=== PATIENT | female | born 1945 | race Caucasian/White ===

== ENCOUNTER 2019-04-05 12:09 | Emergency (ER) | payer OTHER ==
[~2019-04-05] VITALS: Ht 167.6 cm; Wt 125.0 kg
[2019-04-05] MEDS ORDERED: SODIUM CHLORIDE 0.9% 1,000 ML IV ONE (13:06)
[2019-04-05] MEDS ORDERED: ONDANSETRON HCL 4MG/2ML INJ IV STA (13:06)
[2019-04-05] MEDS ORDERED: MORPHINE SULFATE 4 MG/ML CPJ (NOT FOR IM USE) IV STA (13:06)
[2019-04-05 13:46] LABS: BASOPHILS % 0.9 % (0.0-2.0); EOSINOPHILS % 0.1 % (0.0-5.0); HEMATOCRIT. 42.1 % (36.0-48.0); HEMOGLOBIN. 13.4 g/dL (12.0-16.0); LYMPHOCYTES % 15.2 % (20.0-50.0); MEAN CORPUSCULAR HEMOGLOBIN 27.2 pg (28.0-32.0); MEAN CORPUSCULAR VOLUME 85.1 fL (81.0-99.0); MEAN PLATELET VOLUME 9.4 fl (7.4-10.4); NEUTROPHILS % 76.8 % (40.0-76.0); PLATELET 214 x1000/uL (130-400); RED BLOOD CELL COUNT 4.95 mill/uL (4.2-5.4); RED CELL DISTRIBUTION WIDTH 16.2 % (11.6-14.6)
[2019-04-05 13:51] LABS: INR 1.1; PROTHROMBIN TIME 10.8 sec (9.6-11.0)
[2019-04-05 13:52] LABS: CHLORIDE 104 mEq/L (98-107)
[2019-04-05] MEDS ORDERED: LACTATED RINGERS 1,000 ML IV STA (15:02)
[2019-04-05] MEDS ORDERED: IOHEXOL-300 100 ML BOTTLE ONE (15:32)
[2019-04-05 17:00] VITALS: BP 180/91
== END 2019-04-05 19:28 | disposition home or self-care (01) ==
LOC: ER 12:09 → CANBEDREQ 19:31
DX: K46.9 Unspecified abdominal hernia without obstruction or gangrene (principal); M54.5 Low back pain; E11.9 Type 2 diabetes mellitus without complications; I10 Essential (primary) hypertension
CPT/HCPCS: 36415; 74177; 80053; 83605; 83690; 84484; 85025; 85610; 87040; 96361; 96374; 96375; 99284; J2270; J2405; J7030; J7120; Q9967

== ENCOUNTER 2021-08-17 13:34 | Emergency (ER) | payer MEDICARE, OTHER ==
[~2021-08-17] VITALS: Ht 170.2 cm; Wt 137.0 kg
[2021-08-17] MEDS ORDERED: MORPHINE SULFATE 4 MG/ML CPJ (NOT FOR IM USE) IV STA (14:23)
[2021-08-17] MEDS ORDERED: ONDANSETRON HCL 4MG/2ML INJ IV STA (14:23)
[2021-08-17] MEDS ORDERED: SODIUM CHLORIDE 0.9% 1,000 ML IV ONE (14:30)
[2021-08-17 15:21] LABS: BASOPHILS % 0.7 % (0.0-2.0); EOSINOPHILS % 0.4 % (0.0-5.0); HEMATOCRIT. 38.8 % (36.0-48.0); HEMOGLOBIN. 12.5 g/dL (12.0-16.0); LYMPHOCYTES % 18.7 % (20.0-50.0); MEAN CORPUSCULAR HEMOGLOBIN 27.2 pg (28.0-32.0); MEAN CORPUSCULAR VOLUME 84.2 fL (81.0-99.0); MEAN PLATELET VOLUME 9.2 fl (7.4-10.4); MONOCYTES % 6.9 % (2.0-8.0); NEUTROPHILS % 73.3 % (40.0-76.0); PLATELET 216 x1000/uL (130-400); RED CELL DISTRIBUTION WIDTH 15.1 % (11.6-14.6)
[2021-08-17 15:25] LABS: CHLORIDE 105 mEq/L (98-107)
[2021-08-17] MEDS ORDERED: MORPHINE SULFATE 4 MG/ML CPJ (NOT FOR IM USE) IV ONE (16:30)
[2021-08-17 17:09] LABS: CLARITY URINE CLEAR (CLEAR); COLOR URINE YELLOW (YELLOW); KETONES URINE TRACE (NEGATIVE); LEUKOCYTE ESTERASE URINE TRACE (NEGATIVE); NITRITE URINE NEGATIVE (NEGATIVE); OCCULT BLOOD URINE NEGATIVE (NEGATIVE); PROTEIN URINE TRACE (NEGATIVE); SPECIFIC GRAVITY URINE 1.019 (1.005-1.030)
[2021-08-17] MEDS ORDERED: CEFTRIAXONE 1 G PREMIX 50 ML IV ONE (17:30)
[2021-08-17] MEDS ORDERED: MORPHINE SULFATE 4 MG/ML CPJ (NOT FOR IM USE) IV PRN (20:15)
[2021-08-17 20:58] VITALS: BP 147/77
== END 2021-08-17 21:23 | disposition short-term general hospital (02) ==
LOC: ER 13:34 → CANBEDREQ 21:56
DX: R10.9 Unspecified abdominal pain (principal); K80.80 Other cholelithiasis without obstruction; N39.0 Urinary tract infection, site not specified; K80.50 Calculus of bile duct without cholangitis or cholecystitis without obstruction; E11.9 Type 2 diabetes mellitus without complications; I10 Essential (primary) hypertension; M19.90 Unspecified osteoarthritis, unspecified site; M48.00 Spinal stenosis, site unspecified; Z90.49 Acquired absence of other specified parts of digestive tract; Z90.710 Acquired absence of both cervix and uterus; Z20.822 Contact with and (suspected) exposure to COVID-19; Z98.890 Other specified postprocedural states
CPT/HCPCS: 36415; 71045; 74176; 76705; 80053; 81003; 83690; 85025; 87086; 87426; 96361; 96365; 96375; 96376; 99285; J0696; J2270; J2405; J7030

== ENCOUNTER 2022-03-09 17:23 | Inpatient (IN) | payer MEDICARE, OTHER ==
[~2022-03-09] VITALS: Ht 165.1 cm; Wt 125.6 kg
[2022-03-09] MEDS ORDERED: PIPERACILLIN/TAZ 3.375G PREMIX 50 ML IV ONE (18:30)
[2022-03-09] MEDS ORDERED: VANCOMYCIN 1G PREMIX 200 ML IV ONE (18:30)
[2022-03-09 18:59] LABS: CHLORIDE 106 mEq/L (98-107)
[2022-03-09 19:05] LABS: BASOPHILS % 0.6 % (0.0-2.0); EOSINOPHILS % 0.1 % (0.0-5.0); HEMOGLOBIN. 13.5 g/dL (12.0-16.0); LYMPHOCYTES % 8.1 % (20.0-50.0); MEAN CORPUSCULAR HEMOGLOBIN 28.8 pg (28.0-32.0); MEAN CORPUSCULAR VOLUME 89.8 fL (81.0-99.0); MONOCYTES % 4.6 % (2.0-8.0); NEUTROPHILS % 86.6 % (40.0-76.0); PLATELET 196 x1000/uL (130-400); RED BLOOD CELL COUNT 4.68 mill/uL (4.2-5.4); RED CELL DISTRIBUTION WIDTH 15.1 % (11.6-14.6)
[2022-03-09 19:09] LABS: ETHANOL BLOOD < 10 mg/dL
[2022-03-09] MEDS ORDERED: SODIUM CHLORIDE 0.9% 1000ML BAG (SEPSIS BOLUS) IV NR (19:45)
[2022-03-09] MEDS ORDERED: METF-414 MT (21:14)
[2022-03-09] MEDS ORDERED: GLIP10TA10 MT (21:14)
[2022-03-09] MEDS ORDERED: LOSA100T32 MT (21:14)
[2022-03-09] MEDS ORDERED: ROSU5TAB MT (21:14)
[2022-03-09] MEDS ORDERED: MORP15TA67 MT (21:14)
[2022-03-09] MEDS ORDERED: METO25TA6 MT (21:14)
[2022-03-09] MEDS ORDERED: GABA-532 MT (21:39)
[2022-03-09 21:45] LABS: CLARITY URINE CLEAR (CLEAR); COLOR URINE DARK YELLOW (YELLOW); KETONES URINE 1+ (NEGATIVE); LEUKOCYTE ESTERASE URINE TRACE (NEGATIVE); NITRITE URINE POSITIVE (NEGATIVE); OCCULT BLOOD URINE NEGATIVE (NEGATIVE); PH URINE 5.5 (4.5-8.0); PROTEIN URINE NEGATIVE (NEGATIVE); SPECIFIC GRAVITY URINE 1.015 (1.005-1.030)
[2022-03-09] MEDS ORDERED: MAGNESIUM/ALUMINUM HYDROXIDE/SIMETHICONE 30ML UDC PO PRN (21:45)
[2022-03-09] MEDS ORDERED: DOCUSATE SODIUM 100MG CAPSULE PO PRN (21:45)
[2022-03-09] MEDS ORDERED: GUAIFENESIN 200MG/10ML SUGAR FREE UDC PO PRN (21:45)
[2022-03-09] MEDS ORDERED: METOCLOPRAMIDE HCL 10MG/2ML VIAL IV PRN (21:45)
[2022-03-09] MEDS: SODIUM CHLORIDE 0.9% 1,000 ML IV SCH (21:45)
[2022-03-09] MEDS ORDERED: IPRATROPIUM/ALBUTEROL 0.5-3(2.5)MG/3ML NEB HHN PRN (21:45)
[2022-03-09] MEDS ORDERED: ENOXAPARIN 40MG/0.4ML SYR SUBCUT SCH (21:45)
[2022-03-09 21:58] LABS: *AMPHETAMINES SCREEN URINE NEGATIVE (NEGATIVE); *BARBITURATES SCREEN URINE NEGATIVE (NEGATIVE); *BENZODIAZEPINES SCREEN URINE NEGATIVE (NEGATIVE); *COCAINE SCREEN URINE NEGATIVE (NEGATIVE); CANNABINOID URINE SCREEN NEGATIVE (NEGATIVE); METHADONE URINE SCREEN NEGATIVE (NEGATIVE); OPIATES URINE SCREEN PRESUMTIVE POSITIVE (NEGATIVE); PHENCYCLIDINE URINE SCREEN NEGATIVE (NEGATIVE)
[2022-03-09] MEDS: MORPHINE SULFATE 2 MG/ML CPJ (NOT FOR IM USE) IV PRN (22:17)
[2022-03-09] MEDS ORDERED: ENOXAPARIN 40MG/0.4ML SYR SUBCUT NR (22:30)
[2022-03-09] MEDS ORDERED: DEXTROSE 50% WATER 50ML SYRINGE IV PRN (23:30)
[2022-03-10] VITALS (18 sets, daily range): BP systolic 108–162; BP diastolic 48–82
[2022-03-10] MEDS ORDERED: METRONIDAZOLE 500 MG PREMIX 100 ML IV SCH
[2022-03-10] MEDS ORDERED: AZITHROMYCIN 500 MG in DEXT 5% WATER 250 ML IV SCH (02:00)
[2022-03-10] MEDS ORDERED: AZITHROMYCIN 500MG/250ML 250 ML IV SCH (02:00)
[2022-03-10] MEDS: PIPERACILLIN/TAZOBACTAM 3.375 G in DEXTROSE 5% WATER 50 ML IV SCH ×4 (02:25→22:44)
[2022-03-10] MEDS ORDERED: PNEUMOCOCCAL 23-VAL P-SAC VAC 0.5 ML IM ONE (03:15)
[2022-03-10] MEDS: IBUPROFEN 400MG TABLET PO PRN (06:00)
[2022-03-10] MEDS: BLOOD SUGAR DIAGNOSTIC STRIP TEST SCH ×4 (08:16→20:45)
[2022-03-10 08:36] LABS: BASOPHILS % 0.3 % (0.0-2.0); HEMATOCRIT. 35.9 % (36.0-48.0); HEMOGLOBIN. 11.6 g/dL (12.0-16.0); LYMPHOCYTES % 9.5 % (20.0-50.0); MEAN CORPUSCULAR HEMOGLOBIN 28.9 pg (28.0-32.0); MEAN CORPUSCULAR VOLUME 89.5 fL (81.0-99.0); MEAN PLATELET VOLUME 10.4 fl (7.4-10.4); MONOCYTES % 4.1 % (2.0-8.0); NEUTROPHILS % 86.1 % (40.0-76.0); PLATELET 115 x1000/uL (130-400); RED BLOOD CELL COUNT 4.01 mill/uL (4.2-5.4); RED CELL DISTRIBUTION WIDTH 14.7 % (11.6-14.6)
[2022-03-10] MEDS: SODIUM CHLORIDE 0.9% 1,000 ML IV SCH ×2 (08:37→18:34)
[2022-03-10] MEDS: PANTOPRAZOLE SODIUM 40 MG/VIAL IV SCH (08:37)
[2022-03-10] MEDS: MORPHINE SULFATE 2 MG/ML CPJ (NOT FOR IM USE) IV PRN ×4 (08:38→22:39)
[2022-03-10] MEDS: INSULIN LISPRO 100 UNITS/ML SUBCUT SCH ×4 (08:39→20:46)
[2022-03-10] MEDS: VANCOMYCIN 1GM PMX (XELLIA) 200 ML IV SCH (20:49)
[2022-03-10] MEDS ORDERED: VANCOMYCIN 1G PREMIX 200 ML IV SCH (21:00)
[2022-03-11] VITALS (12 sets, daily range): BP systolic 123–183; BP diastolic 56–91
[2022-03-11] MEDS: AZITHROMYCIN 500 MG in DEXT 5% WATER 250 ML IV SCH (01:41)
[2022-03-11] MEDS: MORPHINE SULFATE 2 MG/ML CPJ (NOT FOR IM USE) IV PRN ×4 (03:04→17:51)
[2022-03-11] MEDS: SODIUM CHLORIDE 0.9% 1,000 ML IV SCH ×2 (03:45→13:09)
[2022-03-11] MEDS: PIPERACILLIN/TAZOBACTAM 3.375 G in DEXTROSE 5% WATER 50 ML IV SCH ×3 (06:10→21:06)
[2022-03-11] MEDS: CLONIDINE 0.1MG TABLET PO PRN ×2 (06:45→18:11)
[2022-03-11] MEDS: INSULIN LISPRO 100 UNITS/ML SUBCUT SCH ×4 (08:00→21:31)
[2022-03-11] MEDS: PANTOPRAZOLE SODIUM 40 MG/VIAL IV SCH (08:16)
[2022-03-11] MEDS: BLOOD SUGAR DIAGNOSTIC STRIP TEST SCH ×4 (08:27→21:00)
[2022-03-11 09:01] LABS: CHLORIDE 109 mEq/L (98-107)
[2022-03-11 09:08] LABS: PHOSPHORUS 2.6 mg/dL (2.5-4.9); TOTAL IRON BINDING CAPACITY 384 ug/dL (250-450)
[2022-03-11 09:19] LABS: HEMATOCRIT 35.2 % (36.0-48.0); HEMOGLOBIN 11.3 g/dL (12.0-16.0); MEAN CORPUSCULAR HEMOGLOBIN 29.5 pg (28.0-32.0); MEAN CORPUSCULAR VOLUME 91.9 fL (81.0-99.0); PLATELET 119 x1000/uL (130-400); RED BLOOD CELL COUNT 3.83 mill/uL (4.2-5.4); RED CELL DISTRIBUTION WIDTH 15.6 % (11.6-14.6)
[2022-03-11 09:31] LABS: VITAMIN B12 SERUM 383 pg/mL (211-911)
[2022-03-11 09:34] LABS: FERRITIN 44 ng/mL (10-291)
[2022-03-11] MEDS ORDERED: POTASSIUM CHLORIDE 20MEQ TABLET SR PO NR (10:15)
[2022-03-11] MEDS ORDERED: MAGNESIUM 2 G PREMIX 50 ML IV NR (11:30)
[2022-03-11] MEDS: IRON SUCROSE COMPLEX 100 MG/5 ML ML IV SCH (11:37)
[2022-03-11] MEDS ORDERED: MAGNESIUM 1 G PREMIX 100 ML IV NR (14:00)
[2022-03-11] MEDS ORDERED: NALOXONE HCL 0.4MG/ML VIAL IV PRN (16:00)
[2022-03-11] MEDS: VANCOMYCIN 1GM PMX (XELLIA) 200 ML IV SCH (21:06)
[2022-03-12] VITALS (12 sets, daily range): BP systolic 132–161; BP diastolic 54–85
[2022-03-12] MEDS: SODIUM CHLORIDE 0.9% 1,000 ML IV SCH ×2 (00:15→08:48)
[2022-03-12] MEDS: AZITHROMYCIN 500 MG in DEXT 5% WATER 250 ML IV SCH (01:50)
[2022-03-12] MEDS: MORPHINE SULFATE 2 MG/ML CPJ (NOT FOR IM USE) IV PRN ×3 (02:22→19:34)
[2022-03-12] MEDS: PIPERACILLIN/TAZOBACTAM 3.375 G in DEXTROSE 5% WATER 50 ML IV SCH (05:23)
[2022-03-12] MEDS: BLOOD SUGAR DIAGNOSTIC STRIP TEST SCH ×4 (07:30→21:00)
[2022-03-12] MEDS: PANTOPRAZOLE SODIUM 40 MG/VIAL IV SCH (08:45)
[2022-03-12] MEDS: GLIPIZIDE 10MG TABLET PO SCH ×2 (08:46→18:21)
[2022-03-12] MEDS: GABAPENTIN 300MG CAPSULE PO SCH ×2 (08:46→21:30)
[2022-03-12] MEDS: LOSARTAN POTASSIUM 100 MG TABLET PO SCH (08:46)
[2022-03-12] MEDS: INSULIN LISPRO 100 UNITS/ML SUBCUT SCH ×4 (08:47→21:31)
[2022-03-12 10:48] LABS: HEMATOCRIT 33.8 % (36.0-48.0); HEMOGLOBIN 11.5 g/dL (12.0-16.0); MEAN CORPUSCULAR HEMOGLOBIN 29.9 pg (28.0-32.0); MEAN CORPUSCULAR VOLUME 88.1 fL (81.0-99.0); PLATELET 124 x1000/uL (130-400); RED BLOOD CELL COUNT 3.84 mill/uL (4.2-5.4)
[2022-03-12 10:57] LABS: CHLORIDE 106 mEq/L (98-107)
[2022-03-12] MEDS ORDERED: POTASSIUM CHLORIDE 20MEQ TABLET SR PO NR ×2 (11:15→16:00)
[2022-03-12] MEDS: IRON SUCROSE COMPLEX 100 MG/5 ML ML IV SCH (12:09)
[2022-03-12] MEDS ORDERED: VANCOMYCIN 750MG PREMIX 150 ML IV SCH (14:00)
[2022-03-12] MEDS ORDERED: CEFTRIAXONE 2 G PREMIX 50 ML IV SCH (17:45)
[2022-03-12] MEDS: CEFTRIAXONE 2 G in DEXTROSE 5% WATER 50 ML IV SCH (19:34)
[2022-03-12] MEDS: IBUPROFEN 400MG TABLET PO PRN (21:29)
[2022-03-12] MEDS: METRONIDAZOLE 500MG TABLET PO SCH (21:30)
[2022-03-13] VITALS (11 sets, daily range): BP systolic 149–188; BP diastolic 59–86
[2022-03-13] MEDS: AZITHROMYCIN 500 MG in DEXT 5% WATER 250 ML IV SCH (01:24)
[2022-03-13] MEDS: SODIUM CHLORIDE 0.9% 1,000 ML IV SCH ×3 (01:24→14:41)
[2022-03-13] MEDS: MORPHINE SULFATE 2 MG/ML CPJ (NOT FOR IM USE) IV PRN ×2 (04:05→15:27)
[2022-03-13] MEDS: CLONIDINE 0.1MG TABLET PO PRN ×2 (04:08→10:34)
[2022-03-13] MEDS: METRONIDAZOLE 500MG TABLET PO SCH ×3 (06:33→21:02)
[2022-03-13] MEDS: GLIPIZIDE 10MG TABLET PO SCH ×2 (06:33→17:39)
[2022-03-13] MEDS: INSULIN LISPRO 100 UNITS/ML SUBCUT SCH ×4 (08:00→21:10)
[2022-03-13] MEDS: BLOOD SUGAR DIAGNOSTIC STRIP TEST SCH ×4 (08:09→21:02)
[2022-03-13] MEDS: GABAPENTIN 300MG CAPSULE PO SCH ×2 (08:10→21:03)
[2022-03-13] MEDS: PANTOPRAZOLE SODIUM 40 MG/VIAL IV SCH (08:10)
[2022-03-13] MEDS: LOSARTAN POTASSIUM 100 MG TABLET PO SCH (08:12)
[2022-03-13] MEDS ORDERED: POTASSIUM CHLORIDE 20MEQ TABLET SR PO SCH (10:15)
[2022-03-13] MEDS: METOPROLOL TARTRATE 25MG TABLET PO SCH ×2 (10:23→21:02)
[2022-03-13] MEDS: IRON SUCROSE COMPLEX 100 MG/5 ML ML IV SCH (10:30)
[2022-03-13] MEDS: HYDROCHLOROTHIAZIDE 25MG TABLET PO SCH (13:24)
[2022-03-13] MEDS: CEFTRIAXONE 2 G in DEXTROSE 5% WATER 50 ML IV SCH ×2 (13:30→13:31)
[2022-03-13] MEDS: HYDRALAZINE 20MG/ML VIAL IV PRN (14:41)
[2022-03-13 16:41] LABS: BASOPHILS % 1.2 % (0.0-2.0); EOSINOPHILS % 2.9 % (0.0-5.0); HEMATOCRIT. 36.6 % (36.0-48.0); HEMOGLOBIN. 12.1 g/dL (12.0-16.0); LYMPHOCYTES % 27.2 % (20.0-50.0); MEAN CORPUSCULAR HEMOGLOBIN 29.1 pg (28.0-32.0); MEAN CORPUSCULAR VOLUME 88.5 fL (81.0-99.0); MEAN PLATELET VOLUME 9.7 fl (7.4-10.4); MONOCYTES % 9.2 % (2.0-8.0); NEUTROPHILS % 59.5 % (40.0-76.0); PLATELET 133 x1000/uL (130-400); RED BLOOD CELL COUNT 4.14 mill/uL (4.2-5.4); RED CELL DISTRIBUTION WIDTH 15.5 % (11.6-14.6)
[2022-03-13 16:57] LABS: CHLORIDE 113 mEq/L (98-107)
[2022-03-14] VITALS (11 sets, daily range): BP systolic 119–187; BP diastolic 59–128
[2022-03-14] MEDS: HYDRALAZINE 20MG/ML VIAL IV PRN (00:17)
[2022-03-14] MEDS: CLONIDINE 0.1MG TABLET PO PRN ×2 (00:17→07:51)
[2022-03-14] MEDS: SODIUM CHLORIDE 0.9% 1,000 ML IV SCH ×3 (00:17→21:45)
[2022-03-14] MEDS: LORAZEPAM 1MG TABLET PO PRN ×2 (02:00→07:51)
[2022-03-14] MEDS: AZITHROMYCIN 500 MG in DEXT 5% WATER 250 ML IV SCH (02:00)
[2022-03-14] MEDS: METRONIDAZOLE 500MG TABLET PO SCH ×3 (06:54→21:19)
[2022-03-14] MEDS: BLOOD SUGAR DIAGNOSTIC STRIP TEST SCH ×4 (07:30→21:00)
[2022-03-14] MEDS: INSULIN LISPRO 100 UNITS/ML SUBCUT SCH ×4 (08:00→21:00)
[2022-03-14] MEDS: IBUPROFEN 400MG TABLET PO PRN (08:18)
[2022-03-14 09:49] LABS: BASOPHILS % 1.1 % (0.0-2.0); EOSINOPHILS % 1.8 % (0.0-5.0); HEMATOCRIT. 37.8 % (36.0-48.0); HEMOGLOBIN. 12.5 g/dL (12.0-16.0); LYMPHOCYTES % 22.8 % (20.0-50.0); MEAN CORPUSCULAR HEMOGLOBIN 28.8 pg (28.0-32.0); MEAN PLATELET VOLUME 9.9 fl (7.4-10.4); NEUTROPHILS % 63.3 % (40.0-76.0); PLATELET 157 x1000/uL (130-400); RED BLOOD CELL COUNT 4.35 mill/uL (4.2-5.4); RED CELL DISTRIBUTION WIDTH 15.1 % (11.6-14.6)
[2022-03-14] MEDS ORDERED: LIDOCAINE HCL/PF 1% 10 MG/ML 5ML VIAL ONE (10:08)
[2022-03-14] MEDS: GABAPENTIN 300MG CAPSULE PO SCH ×2 (11:02→21:02)
[2022-03-14] MEDS: PANTOPRAZOLE SODIUM 40 MG/VIAL IV SCH (11:02)
[2022-03-14] MEDS: METOPROLOL TARTRATE 25MG TABLET PO SCH ×2 (11:03→21:03)
[2022-03-14] MEDS: HYDROCHLOROTHIAZIDE 25MG TABLET PO SCH (11:03)
[2022-03-14] MEDS: LOSARTAN POTASSIUM 100 MG TABLET PO SCH (11:03)
[2022-03-14] MEDS: GLIPIZIDE 10MG TABLET PO SCH ×2 (11:03→17:30)
[2022-03-14 12:00] LABS: CHLORIDE 111 mEq/L (98-107)
[2022-03-14] MEDS ORDERED: HYDR25TA PO ×2 (13:35→14:25)
[2022-03-14] MEDS ORDERED: LEVO750T68 MT (13:35)
[2022-03-14] MEDS ORDERED: AMLO5TAB88 MT (13:35)
[2022-03-14] MEDS ORDERED: AMLO5TAB88 PO (14:25)
[2022-03-14] MEDS ORDERED: LEVO750T68 PO (14:25)
[2022-03-14] MEDS: CEFTRIAXONE 2 G in DEXTROSE 5% WATER 50 ML IV SCH (18:37)
[2022-03-15] VITALS (10 sets, daily range): BP systolic 137–169; BP diastolic 48–97
[2022-03-15] MEDS: METRONIDAZOLE 500MG TABLET PO SCH (06:09)
[2022-03-15] MEDS: BLOOD SUGAR DIAGNOSTIC STRIP TEST SCH ×3 (07:30→17:19)
[2022-03-15] MEDS: SODIUM CHLORIDE 0.9% 1,000 ML IV SCH (07:45)
[2022-03-15] MEDS: INSULIN LISPRO 100 UNITS/ML SUBCUT SCH ×2 (08:00→13:00)
[2022-03-15] MEDS ORDERED: AZITHROMYCIN 500 MG TABLET PO SCH (09:00)
[2022-03-15] MEDS: PANTOPRAZOLE SODIUM 40 MG/VIAL IV SCH (09:16)
[2022-03-15] MEDS: METOPROLOL TARTRATE 25MG TABLET PO SCH (09:18)
[2022-03-15] MEDS: GABAPENTIN 300MG CAPSULE PO SCH (09:18)
[2022-03-15] MEDS: HYDROCHLOROTHIAZIDE 25MG TABLET PO SCH (09:18)
[2022-03-15] MEDS: IBUPROFEN 400MG TABLET PO PRN (09:21)
[2022-03-15] MEDS: LOSARTAN POTASSIUM 100 MG TABLET PO SCH (09:28)
[2022-03-15 12:36] LABS: BASOPHILS % 0.8 % (0.0-2.0); EOSINOPHILS % 2.1 % (0.0-5.0); HEMATOCRIT. 34.6 % (36.0-48.0); HEMOGLOBIN. 11.7 g/dL (12.0-16.0); LYMPHOCYTES % 25.3 % (20.0-50.0); MEAN CORPUSCULAR HEMOGLOBIN 29.6 pg (28.0-32.0); MEAN PLATELET VOLUME 9.9 fl (7.4-10.4); MONOCYTES % 9.9 % (2.0-8.0); NEUTROPHILS % 61.9 % (40.0-76.0); PLATELET 182 x1000/uL (130-400); RED BLOOD CELL COUNT 3.93 mill/uL (4.2-5.4)
[2022-03-15 12:49] LABS: CHLORIDE 107 mEq/L (98-107)
[2022-03-15] MEDS: CLONIDINE 0.1MG TABLET PO PRN (14:54)
[2022-03-15] MEDS: GLIPIZIDE 10MG TABLET PO SCH ×2 (14:54→17:18)
[2022-03-15] MEDS: HYDRALAZINE 20MG/ML VIAL IV PRN (17:19)
== END 2022-03-15 20:38 | disposition home health service (06) | DRG 871 ==
LOC: ER 17:23 → 5EST 19:30 → EDBEDREQTM 19:38 → EDBEDREQ 19:38 → EDBEDREQSVC 19:38 → SUPCPDRO 20:45 → ENRESERV 22:22
PROVIDERS: ADMIT Internal Medicine; ATTEND Internal Medicine
PROC: 05HY33Z Insertion of Infusion Device into Upper Vein, Percutaneous Approach (ICD-10-PCS; principal; 2022-03-14)
PROC: B54MZZA Ultrasonography of Right Upper Extremity Veins, Guidance (ICD-10-PCS; 2022-03-14)
DX: A41.51 Sepsis due to Escherichia coli [E. coli] (principal); G92.8 Other toxic encephalopathy; N39.0 Urinary tract infection, site not specified; Z68.42 Body mass index [BMI] 45.0-49.9, adult; R65.20 Severe sepsis without septic shock; E78.5 Hyperlipidemia, unspecified; E66.9 Obesity, unspecified; E87.6 Hypokalemia; K80.50 Calculus of bile duct without cholangitis or cholecystitis without obstruction; I87.2 Venous insufficiency (chronic) (peripheral); D50.9 Iron deficiency anemia, unspecified; E11.9 Type 2 diabetes mellitus without complications; R74.01 Elevation of levels of liver transaminase levels; Z53.20 Procedure and treatment not carried out because of patient's decision for unspecified reasons; Z20.822 Contact with and (suspected) exposure to COVID-19; F40.240 Claustrophobia; I10 Essential (primary) hypertension; M48.00 Spinal stenosis, site unspecified; M13.0 Polyarthritis, unspecified; Z90.710 Acquired absence of both cervix and uterus; Z90.49 Acquired absence of other specified parts of digestive tract; Z86.73 Personal history of transient ischemic attack (TIA), and cerebral infarction without residual deficits; Z88.8 Allergy status to other drugs, medicaments and biological substances; Z79.899 Other long term (current) drug therapy
CPT/HCPCS: 36415; 36573; 71045; 74176; 76700; 80048; 80053; 80061; 80076; 80202; 80305; 80320; 81003; 82140; 82248; 82607; 82728; 82962; 83036; 83540; 83550; 83605; 83735; 84100; 84145; 84443; 84484; 85025; 85027; 85379; 87077; 87186; 87426; 93005; 93970; 97162; 99285; C1725; C1769; C1893; C9113; J0360; J0456; J0696; J1815; J2270; J2543; J3370; J3475; J3490; J7060; A4315; G0480

== ENCOUNTER 2022-04-02 11:49 | Emergency (ER) | payer MEDICARE, OTHER ==
[~2022-04-02] VITALS: Ht 167.6 cm; Wt 139.0 kg
[~2022-04-02 11:49] MED LIST: AMLO5TAB88 PO; GABA-532 MT; GLIP10TA10 MT; HYDR25TA PO; LEVO750T68 PO; LOSA100T32 MT; METF-414 MT; METO25TA6 MT; MORP15TA67 MT; ROSU5TAB MT
[2022-04-02 13:56] LABS: CLARITY URINE CLOUDY (CLEAR); COLOR URINE YELLOW (YELLOW); KETONES URINE NEGATIVE (NEGATIVE); LEUKOCYTE ESTERASE URINE 3+ (NEGATIVE); NITRITE URINE NEGATIVE (NEGATIVE); OCCULT BLOOD URINE TRACE (NEGATIVE); PROTEIN URINE TRACE (NEGATIVE); SPECIFIC GRAVITY URINE 1.014 (1.005-1.030)
[2022-04-02 13:57] LABS: BASOPHILS % 0.7 % (0.0-2.0); EOSINOPHILS % 0.5 % (0.0-5.0); HEMATOCRIT. 38.3 % (36.0-48.0); HEMOGLOBIN. 12.3 g/dL (12.0-16.0); LYMPHOCYTES % 13.7 % (20.0-50.0); MEAN CORPUSCULAR HEMOGLOBIN 29.2 pg (28.0-32.0); MEAN CORPUSCULAR VOLUME 90.7 fL (81.0-99.0); MEAN PLATELET VOLUME 8.7 fl (7.4-10.4); MONOCYTES % 7.9 % (2.0-8.0); NEUTROPHILS % 77.2 % (40.0-76.0); PLATELET 226 x1000/uL (130-400); RED BLOOD CELL COUNT 4.22 mill/uL (4.2-5.4); RED CELL DISTRIBUTION WIDTH 17.2 % (11.6-14.6)
[2022-04-02 14:02] LABS: CHLORIDE 107 mEq/L (98-107)
[2022-04-02] MEDS ORDERED: CEFTRIAXONE 1 G PREMIX 50 ML IV ONE (16:30)
[2022-04-02] MEDS ORDERED: HYDROCODONE/ACETAMINOPHEN 5/325MG TABLET PO ONE (19:30)
[2022-04-02 22:01] VITALS: BP 155/58
== END 2022-04-02 23:36 | disposition short-term general hospital (02) ==
LOC: ER 11:49 → CANBEDREQ 18:05 → ER 23:36
DX: N39.0 Urinary tract infection, site not specified (principal); R53.1 Weakness; E11.9 Type 2 diabetes mellitus without complications; I10 Essential (primary) hypertension; M19.90 Unspecified osteoarthritis, unspecified site; G89.29 Other chronic pain; M54.9 Dorsalgia, unspecified; Z74.01 Bed confinement status; Z79.4 Long term (current) use of insulin; Z88.8 Allergy status to other drugs, medicaments and biological substances
CPT/HCPCS: 36415; 71045; 80053; 81003; 83880; 84484; 85025; 87086; 93005; 99291; J0696

== ENCOUNTER 2022-04-16 18:24 | Emergency (ER) | payer MEDICARE, OTHER ==
[~2022-04-16] VITALS: Ht 165.1 cm; Wt 118.0 kg
[2022-04-16 22:34] LABS: BASOPHILS % 0.6 % (0.0-2.0); EOSINOPHILS % 0.3 % (0.0-5.0); HEMOGLOBIN. 13.3 g/dL (12.0-16.0); LYMPHOCYTES % 18.9 % (20.0-50.0); MEAN CORPUSCULAR HEMOGLOBIN 29.4 pg (28.0-32.0); MEAN CORPUSCULAR VOLUME 90.6 fL (81.0-99.0); MONOCYTES % 7.5 % (2.0-8.0); NEUTROPHILS % 72.7 % (40.0-76.0); PLATELET 186 x1000/uL (130-400); RED BLOOD CELL COUNT 4.52 mill/uL (4.2-5.4); RED CELL DISTRIBUTION WIDTH 17.1 % (11.6-14.6)
[2022-04-16 22:40] LABS: CHLORIDE 105 mEq/L (98-107)
[2022-04-17 00:32] VITALS: BP 150/36
== END 2022-04-17 02:54 | disposition home or self-care (01) ==
LOC: ER 18:24
DX: R79.89 Other specified abnormal findings of blood chemistry (principal); E11.9 Type 2 diabetes mellitus without complications; E78.00 Pure hypercholesterolemia, unspecified; I10 Essential (primary) hypertension; Z79.899 Other long term (current) drug therapy
CPT/HCPCS: 36415; 80053; 85025; 99283

== ENCOUNTER 2022-11-29 04:52 | Emergency (ER) | payer BC, MEDICARE, OTHER ==
[~2022-11-29] VITALS: Ht 170.2 cm; Wt 106.0 kg
[~2022-11-29 04:52] MED LIST changes: -LOSA100T32 MT; +LOSA100T33 MT; +MORP15TA54 PO; -MORP15TA67 MT
[2022-11-29 04:58] VITALS: O2SAT 95
[2022-11-29] MEDS ORDERED: MORPHINE SULFATE 4 MG/ML CPJ (NOT FOR IM USE) IV STA (05:32)
[2022-11-29] MEDS ORDERED: FAMOTIDINE 20MG/2ML VIAL IV STA (05:32)
[2022-11-29] MEDS ORDERED: ONDANSETRON HCL 4MG/2ML INJ IV STA (05:32)
[2022-11-29 05:57] LABS: HEMATOCRIT. 43.7 % (36.0-48.0); HEMOGLOBIN. 14.5 g/dL (12.0-16.0); MEAN CORPUSCULAR HEMOGLOBIN 30.5 pg (28.0-32.0); MEAN CORPUSCULAR VOLUME 91.5 fL (81.0-99.0); MEAN PLATELET VOLUME 8.7 fl (7.4-10.4); PLATELET 195 x1000/uL (130-400); RED BLOOD CELL COUNT 4.77 mill/uL (4.2-5.4); RED CELL DISTRIBUTION WIDTH 13.8 % (11.6-14.6)
[2022-11-29 06:05] LABS: CHLORIDE 109 mEq/L (98-107); INR 1.1; PROTHROMBIN TIME 11.4 sec (9.6-11.0)
[2022-11-29 08:26] LABS: PLATELET ESTIMATE NORMAL
[2022-11-29] MEDS ORDERED: PIPERACILLIN/TAZ 3.375G PREMIX 50 ML IV ONE (09:30)
[2022-11-29] MEDS ORDERED: VANCOMYCIN 1G PREMIX 200 ML IV ONE (09:30)
[2022-11-29 11:48] LABS: CLARITY URINE CLEAR (CLEAR); COLOR URINE DARK YELLOW (YELLOW); KETONES URINE NEGATIVE (NEGATIVE); LEUKOCYTE ESTERASE URINE NEGATIVE (NEGATIVE); NITRITE URINE POSITIVE (NEGATIVE); OCCULT BLOOD URINE 1+ (NEGATIVE); PH URINE 5.5 (4.5-8.0); PROTEIN URINE TRACE (NEGATIVE); SPECIFIC GRAVITY URINE 1.017 (1.005-1.030)
[2022-11-29 12:41] VITALS: BP 156/76; PULSE 86; RESP 20; TEMP 98.5
== END 2022-11-29 13:18 | disposition short-term general hospital (02) ==
LOC: ER 04:52
DX: K80.50 Calculus of bile duct without cholangitis or cholecystitis without obstruction (principal); E11.9 Type 2 diabetes mellitus without complications; E78.00 Pure hypercholesterolemia, unspecified; I10 Essential (primary) hypertension; Z79.899 Other long term (current) drug therapy
CPT/HCPCS: 99285; 96365; 96375; 76705; 96367; 80053; 81003; 83690; 85025; 85610; 84484; 36415; 93005; J3490; J2405; J2543; J3370; J2270

== ENCOUNTER 2023-02-24 11:32 | Emergency (ER) | payer BC ==
[~2023-02-24] VITALS: Ht 167.6 cm; Wt 95.0 kg
[~2023-02-24 11:32] MED LIST changes: +LEVO-65 MT; -LEVO750T68 PO
[2023-02-24 11:36] VITALS: O2SAT 100
[2023-02-24] MEDS ORDERED: VANCOMYCIN 1G PREMIX 200 ML IV ONE (12:45)
[2023-02-24] MEDS ORDERED: SODIUM CHLORIDE 0.9% 1000ML BAG (SEPSIS BOLUS) IV ONE (12:45)
[2023-02-24] MEDS ORDERED: CEFTRIAXONE 1GM PREMIX 50 ML IV ONE (12:45)
[2023-02-24 14:08] LABS: BASOPHILS % 0.9 % (0.0-2.0); EOSINOPHILS % 0.6 % (0.0-5.0); HEMATOCRIT. 39.2 % (36.0-48.0); LYMPHOCYTES % 20.8 % (20.0-50.0); MEAN CORPUSCULAR HEMOGLOBIN 29.8 pg (28.0-32.0); MEAN CORPUSCULAR HGB CONC 33.1 g/dL (31.0-37.0); MEAN CORPUSCULAR VOLUME 89.9 fL (81.0-99.0); MEAN PLATELET VOLUME 9.2 fl (7.4-10.4); MONOCYTES % 6.1 % (2.0-8.0); NEUTROPHILS % 71.6 % (40.0-76.0); PLATELET 202 x1000/uL (130-400); RED BLOOD CELL COUNT 4.36 mill/uL (4.2-5.4); RED CELL DISTRIBUTION WIDTH 13.9 % (11.6-14.6); WHITE BLOOD COUNT 10.6 x1000/uL (4.5-11.0)
[2023-02-24 14:18] LABS: CHLORIDE 111 mEq/L (98-107); INDEX HEMOLYSI 1 (1-3); INDEX ICTERIC 1 (1-4); INDEX LIPEMIC 1 (1-3); SODIUM 142 mEq/L (136-145)
[2023-02-24 14:30] LABS: ALANINE AMINOTRANSFERASE 20 IU/L (13-61); ALBUMIN 3.3 g/dL (3.4-5.0); ASPARTATE AMINOTRANSFERASE 13 IU/L (15-37); BILIRUBIN TOTAL 0.9 mg/dL (0.1-1.0); CALCIUM 9.6 mg/dL (8.5-10.1); CARBON DIOXIDE 24 mEq/L (21-32); CREATININE 0.8 mg/dL (0.6-1.3); GLUCOSE 213 mg/dL (70-105); TROPONIN I HIGH SENSITIVITY 14 ng/L (<54); UREA NITROGEN BLOOD 33 mg/dL (7-21)
[2023-02-24 14:39] LABS: INR 1.1; PROTHROMBIN TIME 11.9 sec (9.6-11.0)
[2023-02-24 16:17] LABS: TROPONIN I HIGH SENSITIVITY 14 ng/L (<54)
[2023-02-24 16:51] LABS: LACTIC ACID 2.9 mmol/L (0.4-2.0)
[2023-02-24 17:30] LABS: CLARITY URINE CLEAR (CLEAR); COLOR URINE YELLOW (YELLOW); GLUCOSE URINE NEGATIVE (NEGATIVE); KETONES URINE NEGATIVE (NEGATIVE); LEUKOCYTE ESTERASE URINE TRACE (NEGATIVE); NITRITE URINE POSITIVE (NEGATIVE); OCCULT BLOOD URINE NEGATIVE (NEGATIVE); PH URINE 6.5 (4.5-8.0); PROTEIN URINE NEGATIVE (NEGATIVE); SPECIFIC GRAVITY URINE 1.014 (1.005-1.030)
[2023-02-24 17:39] LABS: BACTERIA URINE 4+; RBC URINE 0-2 /hpf (0-2); SQUAMOUS EPITHELIAL CELL URINE FEW /lpf (RARE/1+); WBC URINE 0-2 /hpf (0-2)
[2023-02-24 19:53] VITALS: BP 154/85; PULSE 92; RESP 17; TEMP 98.5
== END 2023-02-24 20:13 | disposition short-term general hospital (02) ==
LOC: ER 11:48
DX: A41.9 Sepsis, unspecified organism (principal); R65.20 Severe sepsis without septic shock; E11.9 Type 2 diabetes mellitus without complications; I10 Essential (primary) hypertension; Z79.899 Other long term (current) drug therapy; Z20.822 Contact with and (suspected) exposure to COVID-19
CPT/HCPCS: 99285; 70450; 96365; 96366; 71045; 87426; 80053; 81003; 83605; 85025; 85610; 86850; 86900; 86901; 87040; 87086; 87186; 84484; 87077; 36415; 74176; 93005; 96368; J0696; J3370; J7030; C9803

== ENCOUNTER 2023-08-03 16:10 | Emergency (ER) | payer BC ==
[~2023-08-03] VITALS: Ht 167.6 cm; Wt 70.0 kg
[2023-08-03 16:12] VITALS: O2SAT 97
[2023-08-03 17:41] LABS: BASOPHILS % 1.1 % (0.0-2.0); EOSINOPHILS % 0.8 % (0.0-5.0); HEMATOCRIT. 41.1 % (36.0-48.0); HEMOGLOBIN. 13.5 g/dL (12.0-16.0); LYMPHOCYTES % 27.8 % (20.0-50.0); MEAN CORPUSCULAR HEMOGLOBIN 30.9 pg (28.0-32.0); MEAN CORPUSCULAR HGB CONC 32.8 g/dL (31.0-37.0); MEAN CORPUSCULAR VOLUME 94.2 fL (81.0-99.0); MEAN PLATELET VOLUME 8.6 fl (7.4-10.4); MONOCYTES % 7.6 % (2.0-8.0); NEUTROPHILS % 62.7 % (40.0-76.0); PLATELET 174 x1000/uL (130-400); RED BLOOD CELL COUNT 4.36 mill/uL (4.2-5.4); RED CELL DISTRIBUTION WIDTH 15.2 % (11.6-14.6); WHITE BLOOD COUNT 7.8 x1000/uL (4.5-11.0)
[2023-08-03 18:03] LABS: AMMONIA 85 uMol/L (<32)
[2023-08-03 18:06] LABS: ACETAMINOPHEN < 2 ug/mL (10-30); ALANINE AMINOTRANSFERASE 20 IU/L (10-49); ALBUMIN 4.1 g/dL (3.2-4.8); ASPARTATE AMINOTRANSFERASE 24 IU/L (<34); CALCIUM 9.3 mg/dL (8.7-10.4); CARBON DIOXIDE 17 mEq/L (21-32); CHLORIDE 110 mEq/L (98-107); CREATININE 0.9 mg/dL (0.6-1.0); GLUCOSE 193 mg/dL (70-105); POTASSIUM 5.1 mEq/L (3.5-5.1); PROTEIN TOTAL 7.2 g/dL (6.0-8.3); SODIUM 142 mEq/L (136-145); THYROID STIMULATING HORMONE 0.98 uIU/mL (0.55-4.78); TROPONIN I HIGH SENSITIVITY 11 ng/L (3.0-34); UREA NITROGEN BLOOD 11 mg/dL (9-23)
[2023-08-03 18:07] LABS: ETHANOL BLOOD < 10 mg/dL (<10)
[2023-08-03] MEDS: VANCOMYCIN 1G PREMIX 200 ML IV NR (19:15)
[2023-08-03] MEDS: CEFEPIME 1,000 MG in DEXTROSE 5% WATER 50 ML IV SCH (19:15)
[2023-08-03 20:20] LABS: TROPONIN I HIGH SENSITIVITY 12 ng/L (3.0-34)
[2023-08-04 01:10] VITALS: BP 180/95; PULSE 110; RESP 12; TEMP 98.3
== END 2023-08-04 03:03 | disposition short-term general hospital (02) ==
LOC: ER 16:10
DX: N39.0 Urinary tract infection, site not specified (principal); R41.82 Altered mental status, unspecified; E11.9 Type 2 diabetes mellitus without complications; I10 Essential (primary) hypertension; Z79.899 Other long term (current) drug therapy
CPT/HCPCS: 80053; 80307; 80329; 80320; 82140; 84443; 85025; 84484; 36415; 71045; 70450; 93005; 96368; 96365; 99285; J0692; J3370; J7060; G0480

== ENCOUNTER 2023-08-30 20:23 | Inpatient (IN) | payer BC ==
[~2023-08-30] VITALS: Ht 167.6 cm; Wt 122.5 kg
[2023-08-30 20:30] VITALS: O2SAT 97
[2023-08-30] MEDS ORDERED: HYDRALAZINE 20MG/ML VIAL IV ONE (21:15)
[2023-08-30 21:30] LABS: BASOPHILS % 1.1 % (0.0-2.0); DIFFERENTIAL COMMENT 0; EOSINOPHILS % 1.6 % (0.0-5.0); HEMATOCRIT. 44.3 % (36.0-48.0); HEMOGLOBIN. 14.7 g/dL (12.0-16.0); LYMPHOCYTES % 24.4 % (20.0-50.0); MEAN CORPUSCULAR HEMOGLOBIN 30.9 pg (28.0-32.0); MEAN CORPUSCULAR HGB CONC 33.1 g/dL (31.0-37.0); MEAN CORPUSCULAR VOLUME 93.3 fL (81.0-99.0); MONOCYTES % 5.7 % (2.0-8.0); NEUTROPHILS % 67.2 % (40.0-76.0); PLATELET 232 x1000/uL (130-400); RED BLOOD CELL COUNT 4.75 mill/uL (4.2-5.4); RED CELL DISTRIBUTION WIDTH 14.4 % (11.6-14.6); WHITE BLOOD COUNT 10.8 x1000/uL (4.5-11.0)
[2023-08-30 21:46] LABS: ALANINE AMINOTRANSFERASE 18 IU/L (10-49); ALBUMIN 4.3 g/dL (3.2-4.8); ASPARTATE AMINOTRANSFERASE 26 IU/L (<34); BILIRUBIN TOTAL 0.6 mg/dL (0.1-1.0); CALCIUM 9.6 mg/dL (8.7-10.4); CARBON DIOXIDE 22 mEq/L (21-32); CHLORIDE 107 mEq/L (98-107); CREATININE 1.1 mg/dL (0.6-1.0); GLUCOSE 180 mg/dL (70-105); POTASSIUM 3.9 mEq/L (3.5-5.1); SODIUM 141 mEq/L (136-145); TROPONIN I HIGH SENSITIVITY 19 ng/L (3.0-34); UREA NITROGEN BLOOD 17 mg/dL (9-23)
[2023-08-30 21:47] LABS: LACTIC ACID 5.7 mmol/L (0.4-2.0)
[2023-08-30] MEDS: SODIUM CHLORIDE 0.9% 1000ML BAG (SEPSIS BOLUS) IV ONE (22:35)
[2023-08-30] MEDS: CEFTRIAXONE 1GM/50ML 50 ML IV ONE (22:50)
[2023-08-30] MEDS: AZITHROMYCIN 500MG/250ML 250 ML IV ONE (22:52)
[2023-08-30 23:00] LABS: CLARITY URINE CLOUDY (CLEAR); COLOR URINE YELLOW (YELLOW); GLUCOSE URINE NEGATIVE (NEGATIVE); KETONES URINE TRACE (NEGATIVE); LEUKOCYTE ESTERASE URINE 3+ (NEGATIVE); NITRITE URINE NEGATIVE (NEGATIVE); OCCULT BLOOD URINE NEGATIVE (NEGATIVE); PROTEIN URINE 2+ (NEGATIVE)
[2023-08-30 23:20] LABS: BACTERIA URINE 4+
[2023-08-30 23:21] LABS: RBC URINE 0-2 /hpf (0-2); SQUAMOUS EPITHELIAL CELL URINE 1+ /lpf (RARE/1+)
[2023-08-30 23:38] LABS: PARTIAL THROMBOPLASTIN TIME 24.2 sec (23.4-31.0)
[2023-08-30] MEDS ORDERED: DOCUSATE SODIUM 100MG CAPSULE PO PRN (23:45)
[2023-08-30] MEDS ORDERED: MAGNESIUM/ALUMINUM HYDROXIDE/SIMETHICONE 30ML UDC PO PRN (23:45)
[2023-08-30] MEDS ORDERED: NA PHOS,M-B/NA PHOS,DI-BA ENEMA 118ML PR PRN (23:45)
[2023-08-30] MEDS: CEFTRIAXONE 1GM/50ML 50 ML IV SCH (23:45)
[2023-08-30 23:48] LABS: TROPONIN I HIGH SENSITIVITY 44 ng/L (3.0-34)
[2023-08-31] MEDS: GABAPENTIN 300MG CAPSULE PO SCH (02:34)
[2023-08-31] MEDS: METOPROLOL TARTRATE 25MG TABLET PO SCH (02:34)
[2023-08-31] MEDS: ENOXAPARIN 40MG/0.4ML SYR SUBCUT SCH (02:39)
[2023-08-31] MEDS: HYDRALAZINE 20MG/ML VIAL IV NR (02:47)
[2023-08-31 06:19] LABS: BASOPHILS % 1.2 % (0.0-2.0); EOSINOPHILS % 1.3 % (0.0-5.0); HEMATOCRIT. 36.8 % (36.0-48.0); LYMPHOCYTES % 22.5 % (20.0-50.0); MEAN CORPUSCULAR HEMOGLOBIN 30.4 pg (28.0-32.0); MEAN CORPUSCULAR HGB CONC 32.4 g/dL (31.0-37.0); MEAN CORPUSCULAR VOLUME 93.7 fL (81.0-99.0); MEAN PLATELET VOLUME 8.6 fl (7.4-10.4); MONOCYTES % 9.4 % (2.0-8.0); NEUTROPHILS % 65.6 % (40.0-76.0); PLATELET 184 x1000/uL (130-400); RED BLOOD CELL COUNT 3.93 mill/uL (4.2-5.4); RED CELL DISTRIBUTION WIDTH 14.1 % (11.6-14.6); WHITE BLOOD COUNT 11.4 x1000/uL (4.5-11.0)
[2023-08-31 06:44] LABS: CALCIUM 8.3 mg/dL (8.7-10.4); CARBON DIOXIDE 24 mEq/L (21-32); CHLORIDE 112 mEq/L (98-107); CREATININE 0.8 mg/dL (0.6-1.0); GLUCOSE 150 mg/dL (70-105); POTASSIUM 3.3 mEq/L (3.5-5.1); SODIUM 144 mEq/L (136-145); THYROID STIMULATING HORMONE 0.49 uIU/mL (0.55-4.78); UREA NITROGEN BLOOD 13 mg/dL (9-23)
[2023-08-31] MEDS: LOSARTAN 100 MG TABLET PO SCH (09:56)
[2023-08-31] MEDS: MORPHINE SULFATE 15MG TABLET SR PO SCH (09:57)
[2023-08-31] MEDS: AMLODIPINE 5MG TABLET PO SCH (09:58)
[2023-08-31 14:21] LABS: VITAMIN B12 SERUM 315 pg/mL (211-911)
[2023-08-31 16:15] VITALS: BP 153/62; PULSE 80; RESP 20; TEMP 97.7
[2023-08-31 16:30] VITALS: BP 153/62; PULSE 84; RESP 18; TEMP 97.7
[2023-08-31] MEDS: POTASSIUM CHLORIDE 20MEQ TABLET SR PO NR (17:15)
[2023-08-31] MEDS: BLOOD SUGAR DIAGNOSTIC STRIP TEST SCH (17:38)
[2023-08-31] MEDS ORDERED: DEXTROSE 50% WATER 50ML SYRINGE IV PRN (17:45)
[2023-08-31] MEDS: INSULIN LISPRO 100 UNITS/ML SUBCUT SCH (18:04)
[2023-08-31 20:49] VITALS: BP 145/58; PULSE 71; RESP 19; TEMP 97.8
[2023-08-31] MEDS: ATORVASTATIN CALCIUM 40MG TABLET PO SCH (21:55)
[2023-09-01] VITALS: BP 176/69; PULSE 77; RESP 16; TEMP 97.1
[2023-09-01] MEDS: ACETAMINOPHEN 325MG TABLET PO PRN (01:04)
[2023-09-01 04:00] VITALS: BP 157/52; PULSE 77; RESP 16; TEMP 97.1
[2023-09-01 05:44] LABS: CALCIUM 8.6 mg/dL (8.7-10.4); CARBON DIOXIDE 23 mEq/L (21-32); CHLORIDE 113 mEq/L (98-107); CREATININE 0.8 mg/dL (0.6-1.0); GLUCOSE 138 mg/dL (70-105); POTASSIUM 3.9 mEq/L (3.5-5.1); SODIUM 143 mEq/L (136-145); UREA NITROGEN BLOOD 15 mg/dL (9-23)
[2023-09-01 06:37] LABS: BASOPHILS % 0.8 % (0.0-2.0); EOSINOPHILS % 2.5 % (0.0-5.0); HEMATOCRIT. 33.7 % (36.0-48.0); HEMOGLOBIN. 11.1 g/dL (12.0-16.0); MEAN CORPUSCULAR HEMOGLOBIN 30.3 pg (28.0-32.0); MEAN CORPUSCULAR HGB CONC 32.9 g/dL (31.0-37.0); MEAN CORPUSCULAR VOLUME 92.1 fL (81.0-99.0); MEAN PLATELET VOLUME 9.2 fl (7.4-10.4); MONOCYTES % 10.3 % (2.0-8.0); NEUTROPHILS % 56.4 % (40.0-76.0); PLATELET 169 x1000/uL (130-400); RED BLOOD CELL COUNT 3.66 mill/uL (4.2-5.4); RED CELL DISTRIBUTION WIDTH 14.5 % (11.6-14.6); WHITE BLOOD COUNT 10.1 x1000/uL (4.5-11.0)
[2023-09-01 08:00] VITALS: BP 169/74; PULSE 74; RESP 20; TEMP 97.8
[2023-09-01] MEDS: CEFTRIAXONE 1GM/50ML 50 ML IV SCH (10:53)
[2023-09-01] MEDS ORDERED: FLUT9.9S BOTHNSTRLS (12:03)
[2023-09-01] MEDS ORDERED: HYDR-4001 MT (12:03)
[2023-09-01] MEDS ORDERED: TIZA4CAP6 PO (12:03)
[2023-09-01] MEDS ORDERED: MAGN500C4 PO (12:03)
[2023-09-01] MEDS ORDERED: OMEP40CA20 PO (12:03)
[2023-09-01] MEDS ORDERED: MIRT-89 PO (12:03)
[2023-09-01 12:10] VITALS: BP 154/55; PULSE 71; RESP 20; TEMP 98
[2023-09-01] MEDS: HYDROCHLOROTHIAZIDE 25MG TABLET PO SCH (15:45)
[2023-09-01] MEDS ORDERED: TIZANIDINE HCL 2MG TABLET PO PRN (15:45)
[2023-09-01 16:00] VITALS: BP 102/72; PULSE 78; RESP 18; TEMP 97.8
[2023-09-01] MEDS ORDERED: NALOXONE HCL 0.4MG/ML VIAL IV PRN (16:00)
[2023-09-01] MEDS: HYDROCODONE/ACETAMINOPHEN 5/325MG TABLET PO PRN (18:16)
[2023-09-01] MEDS: FLUTICASONE PROPIONATE 50MCG/SPRAY BOTTLE BOTHNSTRLS SCH (22:01)
[2023-09-01] MEDS: MIRTAZAPINE 15MG TABLET PO SCH (22:02)
[2023-09-01] MEDS: PANTOPRAZOLE 40MG DR TABLET PO SCH (22:03)
[2023-09-02] VITALS: BP 143/64; PULSE 83; RESP 18; TEMP 98.7
[2023-09-02 04:00] VITALS: BP 149/72; PULSE 79; RESP 19; TEMP 98.1
[2023-09-02 07:56] LABS: BASOPHILS % 0.7 % (0.0-2.0); EOSINOPHILS % 3.4 % (0.0-5.0); HEMATOCRIT. 35.8 % (36.0-48.0); HEMOGLOBIN. 11.8 g/dL (12.0-16.0); LYMPHOCYTES % 32.8 % (20.0-50.0); MEAN CORPUSCULAR HEMOGLOBIN 30.5 pg (28.0-32.0); MEAN CORPUSCULAR VOLUME 92.3 fL (81.0-99.0); MEAN PLATELET VOLUME 9.2 fl (7.4-10.4); MONOCYTES % 9.8 % (2.0-8.0); NEUTROPHILS % 53.3 % (40.0-76.0); PLATELET 170 x1000/uL (130-400); RED BLOOD CELL COUNT 3.87 mill/uL (4.2-5.4); RED CELL DISTRIBUTION WIDTH 14.2 % (11.6-14.6)
[2023-09-02 08:00] VITALS: BP 147/79; RESP 18; TEMP 97.8
[2023-09-02 08:26] LABS: CALCIUM 9.1 mg/dL (8.7-10.4); CARBON DIOXIDE 24 mEq/L (21-32); CHLORIDE 110 mEq/L (98-107); CREATININE 0.8 mg/dL (0.6-1.0); GLUCOSE 148 mg/dL (70-105); SODIUM 142 mEq/L (136-145); UREA NITROGEN BLOOD 15 mg/dL (9-23)
[2023-09-02] MEDS: LOSARTAN 50 MG TABLET PO SCH (09:01)
[2023-09-02] MEDS: DOCUSATE SODIUM 100MG CAPSULE PO SCH (09:01)
[2023-09-02 12:00] VITALS: BP 144/47; PULSE 78; RESP 18; TEMP 98
[2023-09-02 16:00] VITALS: BP 120/79; PULSE 80; RESP 20; TEMP 98
[2023-09-02 17:31] LABS: BG BASE EXCESS 0.3 mmol/L (-2.0-2.0); BG CARBOXYHEMOGLOBIN 1.1 % (0.5-1.5); BG DEOXYHEMOGLOBIN 8.2 % (0.0-5.0); BG FRACTION INSPIRED OXYGEN 21; BG HCO3 ACT 26.1 mmol/L (22.0-26.0); BG METHEMOGLOBIN 0.1 % (0.0-1.5); BG OXYGEN SATURATION 91.7 % (92.0-98.5); BG OXYHEMOGLOBIN 90.6 % (94.0-97.0); BG PCO2 46.9 mmHg (35.0-45.0); BG PH 7.363 (7.350-7.450); BG PO2 65.2 mmHg (75.0-100.0); BG SAMPLE SITE RIGHT BRACHIAL; BG TOTAL HEMOGLOBIN 12.2 g/dL (12.0-18.0); BG VENT MODE ROOM AIR
[2023-09-02 20:00] VITALS: BP 135/54; PULSE 79; RESP 18; TEMP 99.3
[2023-09-02 20:13] LABS: AMMONIA 37 uMol/L (<32)
[2023-09-03] VITALS: BP 118/64; PULSE 85; RESP 19; TEMP 98.8
[2023-09-03 04:00] VITALS: BP 122/80; PULSE 88; RESP 18; TEMP 97.9
[2023-09-03 08:00] VITALS: BP 158/60; PULSE 91; RESP 18; TEMP 97.1
[2023-09-03] MEDS: FAMOTIDINE 20MG TABLET PO SCH (08:43)
[2023-09-03 12:00] VITALS: BP 129/78; PULSE 94; RESP 18; TEMP 97.8
[2023-09-03 16:00] VITALS: BP 149/62; PULSE 77; RESP 18; TEMP 98.3
[2023-09-03 20:00] VITALS: BP 147/48; PULSE 73; RESP 18; TEMP 99.9
[2023-09-04] VITALS (8 sets, daily range): BP systolic 114–146; BP diastolic 54–84; PULSE 71–88; RESP 18–20; TEMP 97.6–99.5
[2023-09-04] MEDS: CLONIDINE 0.1MG TABLET PO PRN (04:37)
[2023-09-04] MEDS: CEFTRIAXONE 1GM/50ML 50 ML IV SCH (14:27)
== END 2023-09-04 23:50 | disposition home or self-care (01) | DRG 689 ==
LOC: ER 20:23 → EDBEDREQ 22:14 → 7WST 08-31 16:42
PROVIDERS: ADMIT Internal Medicine Pulmonary Disease; ATTEND Internal Medicine Pulmonary Disease
DX: N39.0 Urinary tract infection, site not specified (principal); G93.41 Metabolic encephalopathy; Z68.41 Body mass index [BMI] 40.0-44.9, adult; E78.5 Hyperlipidemia, unspecified; E66.01 Morbid (severe) obesity due to excess calories; Z20.822 Contact with and (suspected) exposure to COVID-19; Z93.3 Colostomy status; Z90.49 Acquired absence of other specified parts of digestive tract; Z74.01 Bed confinement status; R56.9 Unspecified convulsions; M48.00 Spinal stenosis, site unspecified; G89.29 Other chronic pain; G47.30 Sleep apnea, unspecified; E11.9 Type 2 diabetes mellitus without complications; Z88.8 Allergy status to other drugs, medicaments and biological substances; G47.33 Obstructive sleep apnea (adult) (pediatric); I10 Essential (primary) hypertension
CPT/HCPCS: 36415; 36600; 71045; 80048; 80053; 81003; 82140; 82375; 82607; 82805; 82962; 83036; 83605; 83880; 84145; 84439; 84443; 84484; 85025; 87426; 93005; 93880; 97162; 99291; A6261; J0360; J0456; J0696; J1650; J1815; J7030

== ENCOUNTER 2024-06-14 18:40 | Inpatient (IN) | payer OTHER, MEDICARE ==
[~2024-06-14] VITALS: Ht 152.4 cm; Wt 115.7 kg
[~2024-06-14 18:40] MED LIST changes: +AMLO10TA80 PO; -AMLO5TAB88 PO; +APIX5TAB PO; +FURO20TA4 PO; +GABA-529 PO; -GABA-532 MT; -GLIP10TA10 MT; +GLIP10TA17 PO; +HYDR-4005 PO; -HYDR25TA PO; +INSU100I28 SQ; -LEVO-65 MT; -MORP15TA54 PO; +OMEP40CA20 PO; -ROSU5TAB MT
[2024-06-14] MEDS: DILTIAZEM HCL 5MG/ML 5ML VIAL IV ONE ×2 (19:43→20:51)
[2024-06-14] MEDS: SODIUM CHLORIDE 0.9% 1,000 ML IV ONE (19:47)
[2024-06-14 21:56] LABS: BASOPHILS % 0.6 % (0.0-2.0); EOSINOPHILS % 0.1 % (0.0-5.0); HEMATOCRIT. 37.8 % (36.0-48.0); HEMOGLOBIN. 12.6 g/dL (12.0-16.0); LYMPHOCYTES % 10.2 % (20.0-50.0); MEAN CORPUSCULAR HEMOGLOBIN 30.5 pg (28.0-32.0); MEAN CORPUSCULAR HGB CONC 33.3 g/dL (31.0-37.0); MEAN CORPUSCULAR VOLUME 91.6 fL (81.0-99.0); MEAN PLATELET VOLUME 9.1 fl (7.4-10.4); MONOCYTES % 11.9 % (2.0-8.0); NEUTROPHILS % 77.2 % (40.0-76.0); PLATELET 170 x1000/uL (130-400); RED BLOOD CELL COUNT 4.13 mill/uL (4.2-5.4); RED CELL DISTRIBUTION WIDTH 14.7 % (11.6-14.6); WHITE BLOOD COUNT 7.4 x1000/uL (4.5-11.0)
[2024-06-14 22:03] LABS: INR 1.2; PROTHROMBIN TIME 12.9 sec (9.6-11.0)
[2024-06-14 22:07] LABS: CHLORIDE 110 mEq/L (98-107); POTASSIUM 3.4 mEq/L (3.5-5.1); SODIUM 148 mEq/L (136-145)
[2024-06-14 22:08] LABS: CARBON DIOXIDE 27 mEq/L (21-32)
[2024-06-14 22:09] LABS: CALCIUM 9.1 mg/dL (8.7-10.4)
[2024-06-14 22:13] LABS: CREATININE 0.8 mg/dL (0.6-1.0); GLUCOSE 210 mg/dL (70-105); UREA NITROGEN BLOOD 16 mg/dL (9-23)
[2024-06-14 22:15] LABS: LACTIC ACID 3.4 mmol/L (0.4-2.0)
[2024-06-14 22:18] LABS: THYROID STIMULATING HORMONE 1.32 uIU/mL (0.55-4.78)
[2024-06-14 22:27] LABS: TROPONIN I HIGH SENSITIVITY 42 ng/L (3.0-34)
[2024-06-14] MEDS: DILTIAZEM HCL 60MG TABLET PO ONE (23:27)
[2024-06-15] MEDS: ONDANSETRON HCL 4MG/2ML INJ IV ONE (00:57)
[2024-06-15] MEDS ORDERED: CEFTRIAXONE 1GM/50ML 50 ML IV ONE (01:30)
[2024-06-15] MEDS ORDERED: AZITHROMYCIN 500MG/250ML 250 ML IV SCH (01:30)
[2024-06-15] MEDS: MIDAZOLAM HCL 2 MG/2 ML VIAL IV ONE (01:50)
[2024-06-15] MEDS ORDERED: CEFTRIAXONE 1GM/50ML 50 ML IV SCH (02:00)
[2024-06-15] MEDS: CEFTRIAXONE 1GM/50ML 50 ML IV NR (03:00)
[2024-06-15] MEDS: AZITHROMYCIN 500MG/250ML 250 ML IV SCH (06:02)
[2024-06-15] MEDS ORDERED: IPRATROPIUM/ALBUTEROL 0.5-3(2.5)MG/3ML NEB HHN PRN (08:45)
[2024-06-15] MEDS ORDERED: ONDANSETRON HCL 4MG/2ML INJ IV PRN (08:45)
[2024-06-15] MEDS ORDERED: DOCUSATE SODIUM 100MG CAPSULE PO PRN (08:45)
[2024-06-15] MEDS ORDERED: CLONIDINE 0.1MG TABLET PO PRN (08:45)
[2024-06-15] MEDS ORDERED: DEXTROSE 5% WATER 1,000 ML IV SCH (09:00)
[2024-06-15] MEDS ORDERED: NALOXONE HCL 0.4MG/ML VIAL IV PRN (09:15)
[2024-06-15] MEDS ORDERED: CEFTRIAXONE 250 MG in DEXTROSE 5% WATER 50 ML IV SCH (09:45)
[2024-06-15] MEDS ORDERED: KCL 20MEQ/100ML PREMIX 100 ML IV NR (10:00)
[2024-06-15] MEDS ORDERED: DEXTROSE 50% WATER 50ML SYRINGE IV PRN (11:00)
[2024-06-15] MEDS ORDERED: VANCOMYCIN 1G PREMIX 200 ML IV SCH ×2 (11:30→15:30)
[2024-06-15 11:37] LABS: BG BASE EXCESS 1.5 mmol/L (-2.0-3.0); BG CARBOXYHEMOGLOBIN 1.2 % (0.5-1.5); BG DEOXYHEMOGLOBIN 9.3 % (0.0-5.0); BG FRACTION INSPIRED OXYGEN 21; BG METHEMOGLOBIN 0.3 % (0.5-1.5); BG OXYGEN SATURATION 90.6 % (94.0-98.0); BG OXYHEMOGLOBIN 89.2 % (94.0-98.0); BG PCO2 35.6 mmHg (32.0-45.0); BG PH 7.465 (7.350-7.450); BG PO2 59.4 mmHg (83.0-108.0); BG SAMPLE SITE RIGHT RADIAL; BG VENT MODE ROOM AIR
[2024-06-15] MEDS: BLOOD SUGAR DIAGNOSTIC STRIP TEST SCH (12:10)
[2024-06-15] MEDS ORDERED: FUROSEMIDE 40MG/4ML VIAL IVP SCH (12:45)
[2024-06-15 14:57] VITALS: BP 139/77; PULSE 89; RESP 20; TEMP 36.5292
[2024-06-15 16:40] LABS: TRIGLYCERIDE 91 mg/dL (0-150)
[2024-06-15 16:41] LABS: LDL CHOLESTEROL 62 mg/dL (5-100)
[2024-06-15 16:42] LABS: ALANINE AMINOTRANSFERASE 11 IU/L (10-49); ALBUMIN 3.4 g/dL (3.2-4.8); ASPARTATE AMINOTRANSFERASE 22 IU/L (<34); BILIRUBIN DIRECT 0.2 mg/dL (<=3.0); BILIRUBIN TOTAL 0.6 mg/dL (0.1-1.0); CHOLESTEROL 115 mg/dL (<200); CREATINE KINASE MB FRACTION 2.1 ng/mL (0.5-3.6); HDL CHOLESTEROL 30 mg/dL (>65); PROTEIN TOTAL 5.8 g/dL (6.0-8.3)
[2024-06-15 17:21] LABS: T4 FREE 1.31 ng/dL (0.89-1.76)
[2024-06-15] MEDS ORDERED: GUAIFENESIN 200MG/10ML SUGAR FREE UDC PO PRN (18:15)
[2024-06-15 20:00] VITALS: BP 148/77; PULSE 18; RESP 20; TEMP 37.00296; O2SAT 98
[2024-06-15] MEDS: VANCOMYCIN 1G PREMIX 200 ML IV SCH (22:54)
[2024-06-15] MEDS: OSELTAMIVIR 75MG CAPSULE PO SCH (22:54)
[2024-06-15 23:58] LABS: CREATINE KINASE MB FRACTION 1.3 ng/mL (0.5-3.6)
[2024-06-16] VITALS: BP 148/77; PULSE 80; RESP 20; TEMP 36.6696; O2SAT 98
[2024-06-16] MEDS: SODIUM CHLORIDE 0.45% 500 ML IV ONE (00:55)
[2024-06-16 04:00] VITALS: BP 136/80; PULSE 79; RESP 20; TEMP 36.78072; O2SAT 97
[2024-06-16] MEDS: METOPROLOL TARTRATE 5MG/5ML VIAL IV NR (05:14)
[2024-06-16] MEDS ORDERED: AZITHROMYCIN 500 MG in DEXT 5% WATER 250 ML IV SCH (06:00)
[2024-06-16 08:00] VITALS: BP 115/82; PULSE 79; RESP 18; TEMP 36.00288; O2SAT 96
[2024-06-16 08:13] LABS: CARBON DIOXIDE 30 mEq/L (21-32); CHLORIDE 110 mEq/L (98-107); SODIUM 151 mEq/L (136-145)
[2024-06-16 08:14] LABS: CALCIUM 8.5 mg/dL (8.7-10.4)
[2024-06-16 08:19] LABS: CREATININE 0.8 mg/dL (0.6-1.0); GLUCOSE 219 mg/dL (70-105); UREA NITROGEN BLOOD 17 mg/dL (9-23)
[2024-06-16 08:24] LABS: POTASSIUM 2.6 mEq/L (3.5-5.1)
[2024-06-16] MEDS: FAMOTIDINE 20MG/2ML VIAL IV SCH (09:10)
[2024-06-16] MEDS: POTASSIUM CHLORIDE 20MEQ TABLET SR PO NR (09:10)
[2024-06-16 09:21] LABS: BASOPHILS % 0.1 % (0.0-2.0); HEMATOCRIT. 39.2 % (36.0-48.0); HEMOGLOBIN. 12.6 g/dL (12.0-16.0); LYMPHOCYTES % 9.9 % (20.0-50.0); MEAN CORPUSCULAR HEMOGLOBIN 29.7 pg (28.0-32.0); MEAN CORPUSCULAR HGB CONC 32.1 g/dL (31.0-37.0); MEAN CORPUSCULAR VOLUME 92.6 fL (81.0-99.0); MEAN PLATELET VOLUME 9.6 fl (7.4-10.4); MONOCYTES % 8.3 % (2.0-8.0); NEUTROPHILS % 81.7 % (40.0-76.0); PLATELET 170 x1000/uL (130-400); RED BLOOD CELL COUNT 4.24 mill/uL (4.2-5.4); RED CELL DISTRIBUTION WIDTH 15.2 % (11.6-14.6); WHITE BLOOD COUNT 12.1 x1000/uL (4.5-11.0)
[2024-06-16] MEDS ORDERED: DIGOXIN 500MCG/2ML AMP IV PRN (09:45)
[2024-06-16] MEDS ORDERED: LIDOCAINE HCL 1% 10 MG/ML 10ML VIAL ONE (10:09)
[2024-06-16] MEDS ORDERED: DEXTROSE 50% WATER 50ML SYRINGE IV PRN (10:15)
[2024-06-16] MEDS: KCL 20MEQ/100ML PREMIX 100 ML IV SCH (11:57)
[2024-06-16 12:00] VITALS: BP 140/60; PULSE 94; RESP 18; TEMP 36.44736; O2SAT 96
[2024-06-16] MEDS: GUAIFENESIN 200MG/10ML SUGAR FREE UDC PO PRN (12:38)
[2024-06-16] MEDS: DILTIAZEM HCL 30MG TABLET PO SCH (12:40)
[2024-06-16] MEDS: BLOOD SUGAR DIAGNOSTIC STRIP TEST SCH (12:40)
[2024-06-16] MEDS: INSULIN LISPRO 100 UNITS/ML SUBCUT SCH (12:51)
[2024-06-16] MEDS: POTASSIUM CHLORIDE 20MEQ/PACKET PO NR (13:54)
[2024-06-16] MEDS: HYDROCODONE/ACETAMINOPHEN 7.5/325MG TABLET PO PRN (13:55)
[2024-06-16] MEDS: VANCOMYCIN 1.25GM PMX (XELLIA) 250 ML IV SCH (13:56)
[2024-06-16 16:00] VITALS: BP 145/55; PULSE 87; RESP 18; TEMP 36.33624; O2SAT 97
[2024-06-16] MEDS: MAGNESIUM 2 G PREMIX 50 ML IV NR (16:45)
[2024-06-16 20:00] VITALS: BP 145/63; PULSE 82; RESP 20; TEMP 36.78072; O2SAT 98
[2024-06-16] MEDS ORDERED: VANCOMYCIN 1G PREMIX 200 ML IV SCH (21:00)
[2024-06-17] VITALS: BP 143/60; PULSE 82; RESP 18; TEMP 36.55848; O2SAT 98
[2024-06-17 04:00] VITALS: BP 155/67; PULSE 78; RESP 20; TEMP 37.00296; O2SAT 98
[2024-06-17 08:00] VITALS: BP 135/45; PULSE 74; RESP 18; TEMP 36.55848; O2SAT 94
[2024-06-17 08:10] LABS: CHLORIDE 108 mEq/L (98-107); POTASSIUM 3.2 mEq/L (3.5-5.1); SODIUM 143 mEq/L (136-145)
[2024-06-17 08:11] LABS: CALCIUM 8.2 mg/dL (8.7-10.4); CARBON DIOXIDE 24 mEq/L (21-32)
[2024-06-17 08:16] LABS: CREATININE 0.6 mg/dL (0.6-1.0); GLUCOSE 166 mg/dL (70-105)
[2024-06-17 08:17] LABS: UREA NITROGEN BLOOD 14 mg/dL (9-23)
[2024-06-17 08:47] LABS: BASOPHILS % 0.5 % (0.0-2.0); HEMATOCRIT. 34.3 % (36.0-48.0); HEMOGLOBIN. 11.2 g/dL (12.0-16.0); LYMPHOCYTES % 14.2 % (20.0-50.0); MEAN CORPUSCULAR HEMOGLOBIN 29.8 pg (28.0-32.0); MEAN CORPUSCULAR HGB CONC 32.6 g/dL (31.0-37.0); MEAN CORPUSCULAR VOLUME 91.4 fL (81.0-99.0); MEAN PLATELET VOLUME 9.5 fl (7.4-10.4); MONOCYTES % 5.8 % (2.0-8.0); NEUTROPHILS % 79.5 % (40.0-76.0); PLATELET 141 x1000/uL (130-400); RED BLOOD CELL COUNT 3.75 mill/uL (4.2-5.4); RED CELL DISTRIBUTION WIDTH 15.3 % (11.6-14.6); WHITE BLOOD COUNT 12.2 x1000/uL (4.5-11.0)
[2024-06-17] MEDS: MAGNESIUM OXIDE 400MG TABLET PO SCH (09:45)
[2024-06-17] MEDS: POTASSIUM CHLORIDE 20MEQ/PACKET PO NR (09:46)
[2024-06-17 12:00] VITALS: BP 132/56; PULSE 78; RESP 18; TEMP 36.50292; O2SAT 96
[2024-06-17] MEDS: MAGNESIUM 2 G PREMIX 50 ML IV NR (12:05)
[2024-06-17] MEDS: DILTIAZEM HCL 60MG TABLET PO SCH (14:07)
[2024-06-17 16:00] VITALS: BP 139/62; PULSE 86; RESP 18; TEMP 36.50292; O2SAT 96
[2024-06-17 20:00] VITALS: BP 151/60; PULSE 83; RESP 18; TEMP 36.50292; O2SAT 98
[2024-06-17] MEDS ORDERED: CEFEPIME 1GM IN DEXT 5% 50ML IV SCH (20:00)
[2024-06-17] MEDS: CEFEPIME 1GM PREMIX 50ML IV SCH (21:10)
[2024-06-18] VITALS: BP 130/58; PULSE 93; RESP 18; TEMP 36.44736
[2024-06-18] MEDS: ACETAMINOPHEN 325MG TABLET PO PRN (03:02)
[2024-06-18 04:00] VITALS: BP 117/60; PULSE 81; RESP 18; TEMP 36.28068; O2SAT 97
[2024-06-18 06:44] LABS: CHLORIDE 105 mEq/L (98-107); POTASSIUM 3.3 mEq/L (3.5-5.1); SODIUM 141 mEq/L (136-145)
[2024-06-18 06:45] LABS: CARBON DIOXIDE 28 mEq/L (21-32)
[2024-06-18 06:46] LABS: CALCIUM 8.2 mg/dL (8.7-10.4)
[2024-06-18 06:50] LABS: CREATININE 0.6 mg/dL (0.6-1.0); GLUCOSE 217 mg/dL (70-105)
[2024-06-18 06:51] LABS: UREA NITROGEN BLOOD 11 mg/dL (9-23)
[2024-06-18 08:00] VITALS: BP 148/69; PULSE 105; RESP 22; TEMP 36.61404; O2SAT 96
[2024-06-18] MEDS: POTASSIUM CHLORIDE 20MEQ/PACKET PO NR ×2 (09:53→14:15)
[2024-06-18 11:11] LABS: BASOPHILS % 0.8 % (0.0-2.0); EOSINOPHILS % 0.4 % (0.0-5.0); HEMATOCRIT. 33.6 % (36.0-48.0); HEMOGLOBIN. 11.2 g/dL (12.0-16.0); LYMPHOCYTES % 21.5 % (20.0-50.0); MEAN CORPUSCULAR HEMOGLOBIN 30.3 pg (28.0-32.0); MEAN CORPUSCULAR HGB CONC 33.3 g/dL (31.0-37.0); MEAN CORPUSCULAR VOLUME 91.2 fL (81.0-99.0); MEAN PLATELET VOLUME 9.8 fl (7.4-10.4); MONOCYTES % 6.4 % (2.0-8.0); NEUTROPHILS % 70.9 % (40.0-76.0); PLATELET 119 x1000/uL (130-400); RED BLOOD CELL COUNT 3.68 mill/uL (4.2-5.4); RED CELL DISTRIBUTION WIDTH 14.8 % (11.6-14.6); WHITE BLOOD COUNT 7.9 x1000/uL (4.5-11.0)
[2024-06-18 12:00] VITALS: BP 154/56; PULSE 88; RESP 20; TEMP 36.78072; O2SAT 95
[2024-06-18] MEDS: DILTIAZEM HCL 60MG TABLET PO SCH (12:00)
[2024-06-18 15:54] VITALS: BP 152/72; PULSE 92; RESP 20; TEMP 37.00296; O2SAT 95
[2024-06-18] MEDS ORDERED: TAM75 PO (17:24)
[2024-06-18] MEDS: DILTIAZEM HCL 120MG CAPSULE ER 24HR PO SCH (17:55)
[2024-06-18] MEDS ORDERED: DILT240T12 PO (18:10)
[2024-06-18] MEDS ORDERED: METF-414 PO (18:25)
[2024-06-18] MEDS ORDERED: OMEP40CA20 PO (18:25)
[2024-06-18] MEDS ORDERED: APIX5TAB PO (18:25)
[2024-06-18] MEDS ORDERED: FURO20TA4 PO (18:25)
[2024-06-18] MEDS: METFORMIN HCL 500MG TABLET PO SCH (18:35)
[2024-06-18] MEDS: FUROSEMIDE 20MG TABLET PO SCH (18:35)
[2024-06-18 20:00] VITALS: BP 96/65; PULSE 83; RESP 18; TEMP 36.114; O2SAT 92
[2024-06-18 20:39] LABS: POTASSIUM 3.6 mEq/L (3.5-5.1)
[2024-06-18] MEDS: APIXABAN 5 MG TABLET PO SCH (20:55)
[2024-06-19] VITALS (7 sets, daily range): BP systolic 126–157; BP diastolic 53–69; PULSE 76–93; RESP 17–20; TEMP 36.05844–36.78072; O2SAT 93–95
[2024-06-19] MEDS: MAGNESIUM 4 G PREMIX 100 ML IV NR (04:33)
[2024-06-19 08:40] LABS: CARBON DIOXIDE 28 mEq/L (21-32); CHLORIDE 104 mEq/L (98-107); POTASSIUM 3.1 mEq/L (3.5-5.1); SODIUM 140 mEq/L (136-145)
[2024-06-19 08:41] LABS: CALCIUM 8.3 mg/dL (8.7-10.4)
[2024-06-19 08:46] LABS: CREATININE 0.5 mg/dL (0.6-1.0); GLUCOSE 204 mg/dL (70-105); UREA NITROGEN BLOOD 7 mg/dL (9-23)
[2024-06-19 09:01] LABS: BASOPHILS % 0.7 % (0.0-2.0); EOSINOPHILS % 0.9 % (0.0-5.0); HEMATOCRIT. 33.9 % (36.0-48.0); HEMOGLOBIN. 11.3 g/dL (12.0-16.0); LYMPHOCYTES % 27.5 % (20.0-50.0); MEAN CORPUSCULAR HEMOGLOBIN 30.2 pg (28.0-32.0); MEAN CORPUSCULAR HGB CONC 33.3 g/dL (31.0-37.0); MEAN CORPUSCULAR VOLUME 90.5 fL (81.0-99.0); MEAN PLATELET VOLUME 9.2 fl (7.4-10.4); MONOCYTES % 8.5 % (2.0-8.0); NEUTROPHILS % 62.4 % (40.0-76.0); PLATELET 139 x1000/uL (130-400); RED BLOOD CELL COUNT 3.75 mill/uL (4.2-5.4); RED CELL DISTRIBUTION WIDTH 14.4 % (11.6-14.6); WHITE BLOOD COUNT 7.7 x1000/uL (4.5-11.0)
[2024-06-19] MEDS: KCL 20MEQ/100ML PREMIX 100 ML IV SCH (14:19)
[2024-06-19] MEDS: MAGNESIUM 2 G PREMIX 50 ML IV NR (14:19)
[2024-06-19] MEDS ORDERED: BUPR75TA8 PO (14:29)
[2024-06-19] MEDS ORDERED: PREG50CA PO (14:29)
[2024-06-19] MEDS ORDERED: DICL75TA5 PO (14:29)
[2024-06-19] MEDS: IPRATROPIUM/ALBUTEROL 0.5-3(2.5)MG/3ML NEB HHN SCH (15:18)
[2024-06-19] MEDS: ACETYLCYSTEINE 200MG/ML 20% VIAL 4ML INH SCH (15:18)
[2024-06-19] MEDS: BUPROPION HCL 75MG TABLET PO SCH (21:48)
[2024-06-19] MEDS: PREGABALIN 50 MG CAPSULE PO SCH (21:49)
[2024-06-19] MEDS: DICLOFENAC SODIUM 75MG DR TABLET PO SCH (21:49)
[2024-06-19 22:04] LABS: POTASSIUM 4.1 mEq/L (3.5-5.1)
== END 2024-06-20 01:13 | disposition home health service (06) | DRG 871 ==
LOC: ER 18:40 → 8WST 06-15 02:44 → EDBEDREQTM 06-15 03:05
PROVIDERS: ADMIT Internal Medicine; ATTEND Internal Medicine
PROC: 05HY33Z Insertion of Infusion Device into Upper Vein, Percutaneous Approach (ICD-10-PCS; principal; 2024-06-16)
PROC: B54NZZA Ultrasonography of Left Upper Extremity Veins, Guidance (ICD-10-PCS; 2024-06-16)
DX: A41.89 Other specified sepsis (principal); G93.41 Metabolic encephalopathy; I21.4 Non-ST elevation (NSTEMI) myocardial infarction; E87.0 Hyperosmolality and hypernatremia; N39.0 Urinary tract infection, site not specified; I50.32 Chronic diastolic (congestive) heart failure; Z68.42 Body mass index [BMI] 45.0-49.9, adult; E11.65 Type 2 diabetes mellitus with hyperglycemia; E66.01 Morbid (severe) obesity due to excess calories; E83.42 Hypomagnesemia; E87.6 Hypokalemia; I11.0 Hypertensive heart disease with heart failure; I48.91 Unspecified atrial fibrillation; I49.3 Ventricular premature depolarization; G47.33 Obstructive sleep apnea (adult) (pediatric); M48.061 Spinal stenosis, lumbar region without neurogenic claudication; J10.1 Influenza due to other identified influenza virus with other respiratory manifestations; L30.4 Erythema intertrigo; M17.12 Unilateral primary osteoarthritis, left knee; M51.369 Other intervertebral disc degeneration, lumbar region without mention of lumbar back pain or lower extremity pain; M79.7 Fibromyalgia; Z74.01 Bed confinement status; Z78.9 Other specified health status; Z79.01 Long term (current) use of anticoagulants; Z79.4 Long term (current) use of insulin; Z79.84 Long term (current) use of oral hypoglycemic drugs; Z79.899 Other long term (current) drug therapy; Z87.01 Personal history of pneumonia (recurrent); Z87.440 Personal history of urinary (tract) infections; Z90.49 Acquired absence of other specified parts of digestive tract
CPT/HCPCS: 36415; 36573; 36600; 71045; 72100; 73560; 76770; 80048; 80061; 80076; 80202; 82375; 82550; 82553; 82805; 82962; 83036; 83605; 83735; 84132; 84145; 84439; 84443; 84484; 85025; 85651; 87804; 92610; 93005; 93308; 93970; 97162; 97167; 99291; A4606; A4663; A6261; C1725; J0456; J0692; J0696; J1815; J2003; J2250; J2405; J3370; J3475; J3480; J3490; J7030; J7060